=== PATIENT | male | born 1970 ===

== ENCOUNTER 2025-09-22 17:19 | Inpatient (IN) | payer OTHER ==
[~2025-09-22] VITALS: Ht 170.2 cm; Wt 103.9 kg
[2025-09-22] MEDS ORDERED: Ampicillin Sod/Sulbactam Sod 3 GM in NS 100 ML IV ONE (17:45)
[2025-09-22] MEDS ORDERED: OxyCODONE 5 mg/Acetamin 325 mg TABLET PO PRN (18:00)
[2025-09-22] MEDS ORDERED: Ondansetron HCl 2 MG / ML 2ML Vial IV PRN (18:05)
[2025-09-22] MEDS ORDERED: Labetalol HCL 5 MG/ML 4ML Injection (Single Dose) IV PRN (18:05)
[2025-09-22] MEDS ORDERED: NS 1,000 ML IV SCH (18:05)
[2025-09-22] MEDS ORDERED: FentaNYL Citrate 50 MCG/ML 2 ML Injection IV PRN (18:10)
[2025-09-22] MEDS ORDERED: FLU VACC TS2025-26(6MOS UP)/PF 45 MCG/0.5 ML SYRINGE IM SCH (18:10)
[2025-09-22] MEDS ORDERED: NS 1,000 ML IV ONE (19:00)
[2025-09-22] MEDS ORDERED: Insulin Human Lispro 100 Units/ML 3ML Syringe SC SCH (20:00)
[2025-09-22] MEDS ORDERED: TRAZ100 PO (20:52)
[2025-09-22] MEDS ORDERED: TAMS.4ER PO (20:52)
[2025-09-22] MEDS ORDERED: Voltaren100 GM TOP (20:52)
[2025-09-22] MEDS ORDERED: TELM80 PO (20:53)
[2025-09-22] MEDS ORDERED: HYDCHL25 PO (20:53)
[2025-09-22] MEDS ORDERED: Lactobacil 2-S.Thermo-Bifido 1 1 Cap PO SCH (21:00)
[2025-09-23] VITALS (13 sets, daily range): BP systolic 117–167; BP diastolic 69–99
[2025-09-23] MEDS ORDERED: Ampicillin Sod/Sulbactam Sod 3 GM in NS 100 ML IV SCH
[2025-09-23 05:13] LABS: Hematocrit 39.1 % (37.0-53.0); Hemoglobin 12.8 g/dL (13.5-17.5); Mean Corpuscular HGB Conc 32.7 g/dL (31.5-36.5); Mean Corpuscular Volume 90 fL (80-100); NRBC ABSOLUTE 0.00 K/mm3 (0.00-0.02); NRBC Auto 0.0 /100 WBC (0.0-0.2); Platelet Count 229 K/mm3 (150-400); RDW Coefficient Variation 12.9 % (11.7-14.2); RDW Standard Deviation 42.4 fL (35.1-46.3)
[2025-09-23 05:25] LABS: Prothrombin Time Results 11.1 Sec (9.7-11.5)
--- NOTE | 2025-09-23 05:53 | NUR ---
SHIFT SUMMARY PT ADMITTED FROM ER FOR ACUTE APPENDICITIS. A&O X4. PAIN MANAGED WELL PER EMAR. SINUS EUGENE @57 PER DECORATING MACHINE TENDER. PT NPO @ 0000 WITH ANTICIPATION OF SURGERY. PT INDEPENDENT IN ROOM. PT RESTING IN BED, RESPIRATION EVEN AND UNLABORED. CALL LIGHT WITHIN REACH.
[2025-09-23 06:41] LABS: Anion Gap 10.0 mmol/L (3-11); Blood Urea Nitrogen 17.0 mg/dL (8-24); CO2, Blood 22.0 mmol/L (21-32); Calcium, Blood 8.1 mg/dL (8.5-10.1); Chloride, Blood 107.0 mmol/L (98-108); Creatinine, Blood 0.56 mg/dL (0.60-1.20); Glucose, Blood 273.0 mg/dL (70-99); Magnesium, Blood 1.9 mg/dL (1.6-2.4); Potassium, Blood 3.6 mmol/L (3.5-5.5); Sodium, Blood 135.0 mmol/L (136-145)
[2025-09-23] MEDS ORDERED: Bupivacaine 0.5% HCl 5 MG/ML 30MLVIAL ONE (12:00)
[2025-09-23] MEDS ORDERED: Insulin Human Lispro 100 Units/ML 3ML Syringe SC SCH (12:10)
[2025-09-23] MEDS ORDERED: HYDROmorphone HCl/Pf 1MG SYR ONE (12:17)
[2025-09-23] MEDS ORDERED: FentaNYL Citrate 50 MCG/ML 2 ML Injection ONE (12:18)
[2025-09-23] MEDS ORDERED: Midazolam HCl 1MG / ML 2ML Vial ONE (12:18)
[2025-09-23] MEDS ORDERED: Rocuronium Bromide 10 MG/ML 5ML Injection IV ONE (12:24)
[2025-09-23] MEDS ORDERED: Labetalol HCL 5 MG/ML 4ML Injection (Single Dose) ONE (12:51)
[2025-09-23] MEDS ORDERED: Ondansetron HCl 2 MG / ML 2ML Vial ONE (12:59)
[2025-09-23] MEDS ORDERED: Ketorolac Tromethamine 30mg Vial ONE (13:01)
[2025-09-23] MEDS ORDERED: Sugammadex Sodium 200 MG/2ML SDV (100 MG/ML) ONE (13:01)
--- NOTE | 2025-09-23 13:04 | NUR ---
Pt up ambulating multiple loops of hallway. denies complaints.
[2025-09-23] MEDS ORDERED: FentaNYL Citrate 50 MCG/ML 2 ML Injection IV PRN ×3 (13:15)
[2025-09-23] MEDS ORDERED: Ondansetron HCl 2 MG / ML 2ML Vial IV PRN (13:15)
[2025-09-23] MEDS ORDERED: HYDROmorphone HCl/Pf 1MG SYR IV PRN (13:20)
[2025-09-23] MEDS ORDERED: OxyCODONE 5 mg/Acetamin 325 mg TABLET PO PRN (13:30)
--- NOTE | 2025-09-23 14:01 | NUR ---
pt to room 227 from pacu. post op vs started and stable. lap sites x-3 to abd. pt alert to verbal. denies pain. Water/snacks provided. Will continue to monitor.
--- NOTE | 2025-09-23 18:24 | NUR ---
Pt checked out ama. paperwork voluntarilly signed and pt pleasant throughout transaction. . ospitalist and Surgeon notified. ambulated to pov accompanied by .
== END 2025-09-23 18:27 | disposition left against medical advice (07) | DRG 399 ==
LOC: ER 17:19 → SURS 17:59
PROVIDERS: Nurse Practitioner Acute Care; Surgery; ADMIT Internal Medicine
PROC: 3E03329 Introduction of Other Anti-infective into Peripheral Vein, Percutaneous Approach (ICD-10-PCS; 2025-09-22)
PROC: 3E02340 Introduction of Influenza Vaccine into Muscle, Percutaneous Approach (ICD-10-PCS; 2025-09-22)
PROC: 0DTJ4ZZ Resection of Appendix, Percutaneous Endoscopic Approach (ICD-10-PCS; principal; 2025-09-23 11:30)
DX: K35.80 Unspecified acute appendicitis (principal); I10 Essential (primary) hypertension; K76.9 Liver disease, unspecified; F12.10 Cannabis abuse, uncomplicated; E11.65 Type 2 diabetes mellitus with hyperglycemia; Z53.29 Procedure and treatment not carried out because of patient's decision for other reasons; Z98.890 Other specified postprocedural states; Z88.8 Allergy status to other drugs, medicaments and biological substances; Z91.030 Bee allergy status; Z88.7 Allergy status to serum and vaccine; Z79.899 Other long term (current) drug therapy; Z91.198 Patient's noncompliance with other medical treatment and regimen for other reason; Z23 Encounter for immunization
CPT/HCPCS: 36415; 80048; 82947; 83036; 83735; 85027; 85610; 99285; A9270; J0295; J1171; J1885; J2250; J2405; J2704; J3010; J7030; J7120